=== PATIENT | male | born 1970 | race African-American/Black ===

== ENCOUNTER 2021-01-18 11:32 | Emergency (ER) | payer OTHER ==
[2021-01-18 12:29] LABS: #Basophils 0.1 thou/uL (0.0-0.2); #Eosinphils 0.1 thou/uL (0.0-0.7); #Lymphocytes 3.1 thou/uL (1.20-3.40); #Monocytes 0.6 thou/uL (0.11-0.59); #Neutrophils 4.1 thou/uL (1.40-6.50); %Basophils 1.5 % (0.0-1.0); %Eosinophils 0.7 % (0.0-10.0); %Lymphocytes 39.1 % (21.0-51.0); %Monocytes 7.4 % (0.0-10.0); %Neutrophils 51.2 % (42.0-75.0); Hemoglobin 16.8 g/dL (14.0-18.0); Mean Corpuscular HGB CONC 35.5 g/dL (32.0-36.0); Mean Corpuscular Hemoglobin 32.9 pg (27.0-31.0); Mean Corpuscular Volume 92.7 fL (78.0-98.0); Mean Platelet Volume 8.5 fL (7.4-10.4); Platelet Count 175 thou/uL (130-400); RBC Distribution Width 12.2 % (11.5-14.5); Red Blood Cell (RBC) Count 5.09 mill/uL (4.70-6.10); White Blood Cell (WBC) Count 7.9 thou/uL (4.8-10.8)
[2021-01-18] MEDS ORDERED: Iopamidol-370 76% 500 ML 1 ML ONE (12:30)
[2021-01-18 12:50] LABS: ALT (SGPT) 31 U/L (8-55); AST (SGOT) 26 U/L (5-34); Albumin 3.9 g/dL (3.5-5.0); Alkaline Phosphatase 81 U/L (40-110); Anion Gap 12 mmol/L (10-20); BUN (Urea Nitrogen) 11 mg/dL (8.4-25.7); Bilirubin, Total 0.9 mg/dL (0.2-1.2); Calc. Creatinine Clearance 0 mL/min (70-130); Calcium 9.6 mg/dL (7.8-10.44); Carbon Dioxide 27 mmol/L (22-29); Chloride 103 mmol/L (98-107); Globulin 2.9 g/dL (2.4-3.5); Glucose 289 mg/dL (70-105); Lipase Less than 4 U/L (8-78); Potassium 4.4 mmol/L (3.5-5.1); Protein, Total 6.8 g/dL (6.0-8.3); Sodium 138 mmol/L (136-145)
[2021-01-18 13:03] LABS: Bilirubin Negative (Negative); Blood, Urine Negative (Negative); Clarity Clear (Clear); Glucose, Urine (Dipstick) Greater than 1000 mg/dL (Negative); Ketone, Urine Trace mg/dL (Negative); Leukocyte Negative Leu/uL (Negative); Nitrite Negative (Negative); Protein, Urine (Dipstick) Negative (Neg-Trace); Specific Gravity, Urine 1.025 (1.002-1.036); Urobilinogen Normal mg/dL (Less than 2); pH, Urine 6.5 (5.0-9.0)
[2021-01-18] MEDS ORDERED: Ketorolac Tromethamine 30 MG/ML VIAL ONE (13:10)
[2021-01-18] MEDS ORDERED: Ondansetron PF 4 MG/2 ML Vial ONE (13:10)
--- NOTE | 2021-01-18 14:07 | CT ---
CT ABDOMEN AND PELVIS WITH CONTRAST: HISTORY: Right lower quadrant abdominal pain. COMPARISON: None. FINDINGS: Mild atelectasis of the lung bases. No pericardial effusion. Aortic contour is nonaneurysmal. The appendix is visualized and is normal. No hydroureteronephrosis or nephroureterolithiasis. There is a hypodensity inferior pole right kidne y measuring fluid attenuation, indicative of a cyst. Adrenal gland is unremarkable as well as the li sasha, spleen, and pancreas. No dilated loops of large or small bowel. Disk bulges throughout the lumbar spine causing moderate neural foraminal narrowing. No acute osseous abnormality. IMPRESSION: 1. Normal appendix. 2. No acute inflammatory process within the abdomen or pelvis. 3. No pelvic obstruction. POS: HOME
[2021-01-18] MEDS ORDERED: Morphine 4 MG/ML VIAL ONE (15:21)
== END 2021-01-18 15:33 | disposition home or self-care (01) ==
LOC: ERS 11:32
DX: R10.9 Unspecified abdominal pain (principal); E11.9 Type 2 diabetes mellitus without complications
CPT/HCPCS: 36415; 74177; 80053; 81003; 83690; 85025; 96374; 96375; J1885; J2270; J2405; Q9967

== ENCOUNTER 2024-11-03 09:30 | Outpatient (CLI) | payer MEDICARE ==
[2024-11-03 11:23] LABS: #Basophils 0.04 10x3/uL (0.0-0.2); %Basophils 0.6 % (0.0-1.0); %Eosinophils 1.3 % (0.0-10.0); %Lymphocytes 41.1 % (21.0-51.0); %Monocytes 8.1 % (0.0-10.0); %Neutrophils 48.8 % (42.0-75.0); Hematocrit 49.4 % (42.0-52.0); Hemoglobin 16.7 g/dL (14.0-18.0); Mean Corpuscular HGB CONC 33.8 g/dL (32.0-36.0); Mean Corpuscular Hemoglobin 30.8 pg (27.0-31.0); Platelet Count 226 10x3/uL (130-400); RBC Distribution Width 12.5 % (11.5-14.5); Red Blood Cell (RBC) Count 5.43 mill/uL (4.70-6.10)
[2024-11-03 13:05] LABS: Anion Gap 10 mmol/L (10-20); BUN (Urea Nitrogen) 10 mg/dL (8.4-25.7); Calc. Creatinine Clearance 0 mL/min (70-130); Calcium 9.1 mg/dL (7.8-10.44); Carbon Dioxide 28 mmol/L (22-29); Chloride 103 mmol/L (98-107); Estimated GFR 68; Glucose 202 mg/dL (70-105); Potassium 4.4 mmol/L (3.5-5.1); Sodium 137 mmol/L (136-145)
== END 2024-11-03 09:31 | disposition home or self-care (01) ==
LOC: LABBT 09:30
PROVIDERS: ATTEND Orthopaedic Surgery
DX: Z01.818 Encounter for other preprocedural examination (principal); R22.31 Localized swelling, mass and lump, right upper limb
CPT/HCPCS: 80048; 85025; 93005; 93010

== ENCOUNTER 2024-11-03 10:43 | Inpatient (IN) | payer MEDICARE ==
[2024-11-03] MEDS ORDERED: LORazepam 2 MG/ML SYR.(CARPUJECT) ONE (11:36)
[2024-11-03 12:11] LABS: Troponin I Less than 0.010 ng/mL (< 0.028)
[2024-11-03 12:14] LABS: ALT (SGPT) 34 U/L (8-55); AST (SGOT) 21 U/L (5-34); Albumin 3.2 g/dL (3.5-5.0); Alkaline Phosphatase 106 U/L (40-110); Anion Gap 11 mmol/L (10-20); BUN (Urea Nitrogen) 11 mg/dL (8.4-25.7); Bilirubin, Total 0.9 mg/dL (0.2-1.2); Calc. Creatinine Clearance 0 mL/min (70-130); Calcium 9.6 mg/dL (7.8-10.44); Carbon Dioxide 29 mmol/L (22-29); Chloride 104 mmol/L (98-107); Estimated GFR 74; Globulin 2.9 g/dL (2.4-3.5); Glucose 171 mg/dL (70-105); Magnesium 1.6 mg/dL (1.6-2.6); Potassium 4.2 mmol/L (3.5-5.1); Protein, Total 6.1 g/dL (6.0-8.3); Sodium 140 mmol/L (136-145)
[2024-11-03 12:30] LABS: Hematocrit 49.2 % (42.0-52.0); Mean Corpuscular HGB CONC 34.6 g/dL (32.0-36.0); Mean Corpuscular Hemoglobin 30.9 pg (27.0-31.0); Mean Corpuscular Volume 89.5 fL (78.0-98.0); Mean Platelet Volume 10.8 fL (7.4-10.4); Platelet Count 217 10x3/uL (130-400); RBC Distribution Width 12.2 % (11.5-14.5)
[2024-11-03 12:32] LABS: Band 1 % (5-11); Eosinophils 1 % (0-10); Hypersegmented Neutrophil SLIGHT (None Seen); Lymphocytes 35 % (21-51); Monocytes 5 % (0-10); Neutrophil 54 % (42-75); Platelet Adequacy Comment Platelets Normal; Reactive Lymphocytes 4 % (0-10)
[2024-11-03] MEDS ORDERED: Aspirin Chewable 81 MG TAB ONE (13:24)
[2024-11-03] MEDS ORDERED: Diltiazem HCl/D5W 125 ML ONE (13:25)
[2024-11-03 15:35] LABS: Troponin I Less than 0.010 ng/mL (< 0.028)
[2024-11-03] MEDS ORDERED: Ondansetron PF 4 MG/2 ML Vial IVP PRN (17:08)
[2024-11-03] MEDS ORDERED: Ondansetron ODT 4 MG TAB PO PRN (17:08)
[2024-11-03] MEDS ORDERED: Glucagon 1 MG/ML KIT IM PRN (17:08)
[2024-11-03] MEDS ORDERED: Dextrose 5% in Water 1,000 ML IV PRN (17:08)
[2024-11-03] MEDS ORDERED: Dextrose 50% Abboject 50 ML SYRINGE SLOW IVP PRN (17:08)
[2024-11-03] MEDS ORDERED: dilTIAZem 125 MG in Sodium Chloride 0.9% 100 ML IVPB SCH (17:15)
[2024-11-03 17:53] VITALS: BMI 30.5
[2024-11-03 18:38] LABS: Troponin I Less than 0.010 ng/mL (< 0.028)
[2024-11-03] MEDS: Famotidine 20 MG TAB PO SCH (20:51)
[2024-11-03] MEDS: Enoxaparin 100 MG (1 mL) SYRINGE SC SCH (20:51)
[2024-11-03] MEDS: Pregabalin 50 MG CAP PO SCH (20:51)
[2024-11-03] MEDS: Lithium Carbonate 150 MG CAP PO SCH (20:51)
[2024-11-03] MEDS: Insulin Regular, Human 100 UNIT/ML 10 ML VIAL IVP SCH (20:52)
[2024-11-03] MEDS: Insulin Lispro 100 UNIT/ML 10 ML VIAL SC PRN (23:25)
[2024-11-04 04:51] LABS: #Basophils Less than 0.03 10x3/uL (0.0-0.2); %Basophils 0.3 % (0.0-1.0); %Eosinophils 1.2 % (0.0-10.0); %Lymphocytes 31.8 % (21.0-51.0); %Monocytes 10.5 % (0.0-10.0); %Neutrophils 55.9 % (42.0-75.0); Hematocrit 43.5 % (42.0-52.0); Mean Corpuscular HGB CONC 34.5 g/dL (32.0-36.0); Mean Corpuscular Hemoglobin 30.5 pg (27.0-31.0); Mean Corpuscular Volume 88.6 fL (78.0-98.0); Mean Platelet Volume 11.5 fL (7.4-10.4); Platelet Count 211 10x3/uL (130-400); RBC Distribution Width 12.3 % (11.5-14.5); Red Blood Cell (RBC) Count 4.91 mill/uL (4.70-6.10)
[2024-11-04 05:04] LABS: Hemoglobin A1c 13.8 % (4.0-6.0)
[2024-11-04 05:12] LABS: Anion Gap 13 mmol/L (10-20); BUN (Urea Nitrogen) 13 mg/dL (8.4-25.7); Calc. Creatinine Clearance 109 mL/min (70-130); Carbon Dioxide 23 mmol/L (22-29); Chloride 108 mmol/L (98-107); Estimated GFR 80; Glucose 75 mg/dL (70-105); Potassium 3.5 mmol/L (3.5-5.1); Sodium 140 mmol/L (136-145)
[2024-11-04] MEDS: Gabapentin 300 MG CAP PO SCH (09:42)
[2024-11-04] MEDS: Acetaminophen 500 MG TAB PO PRN (09:43)
[2024-11-04] MEDS: Insulin Glargine 30 UNITS/0.3 ML VIAL SC SCH (09:44)
[2024-11-04] MEDS: Insulin Lispro 100 UNIT/ML 10 ML VIAL SC PRN (12:34)
[2024-11-04] MEDS: FLU (Fluarix Triv) TS24-25(6MOS UP)/PF 45 MCG/0.5 ML Syringe IM ONE (13:20)
[2024-11-04] MEDS ORDERED: Electrolyte Replacement Protocol 1 EACH FS SCH (15:00)
[2024-11-04] MEDS: Magnesium 2 GM/50 ML(in water) 2 GM in Premix 1 BAG IVPB SCH (15:55)
[2024-11-04] MEDS: Carvedilol 3.125 MG TAB PO SCH (17:17)
[2024-11-04] MEDS ORDERED: Sacubitril 24MG/Valsartan 26 MG TAB PO SCH (21:00)
[2024-11-04] MEDS: Atorvastatin Calcium 40 MG TAB PO SCH (21:57)
[2024-11-04] MEDS: Lorazepam 0.5 MG TAB PO PRN (21:58)
[2024-11-05 04:47] LABS: #Basophils 0.03 10x3/uL (0.0-0.2); %Basophils 0.5 % (0.0-1.0); %Eosinophils 1.9 % (0.0-10.0); %Lymphocytes 59.5 % (21.0-51.0); %Monocytes 7.4 % (0.0-10.0); %Neutrophils 30.5 % (42.0-75.0); Hematocrit 42.8 % (42.0-52.0); Mean Corpuscular Volume 88.4 fL (78.0-98.0); Mean Platelet Volume 11.8 fL (7.4-10.4); Platelet Count 191 10x3/uL (130-400); RBC Distribution Width 12.2 % (11.5-14.5); Red Blood Cell (RBC) Count 4.84 mill/uL (4.70-6.10)
[2024-11-05 05:55] LABS: ALT (SGPT) 22 U/L (8-55); AST (SGOT) 21 U/L (5-34); Albumin 2.9 g/dL (3.5-5.0); Alkaline Phosphatase 120 U/L (40-110); Anion Gap 14 mmol/L (10-20); BUN (Urea Nitrogen) 12 mg/dL (8.4-25.7); Bilirubin, Total 0.4 mg/dL (0.2-1.2); Calc. Creatinine Clearance 98 mL/min (70-130); Calcium 8.6 mg/dL (7.8-10.44); Carbon Dioxide 22 mmol/L (22-29); Chloride 106 mmol/L (98-107); Estimated GFR 70; Globulin 2.8 g/dL (2.4-3.5); Glucose 383 mg/dL (70-105); Potassium 4.3 mmol/L (3.5-5.1); Protein, Total 5.7 g/dL (6.0-8.3); Sodium 138 mmol/L (136-145)
[2024-11-05] MEDS ORDERED: Regadenoson 0.4 MG/5 ML SYRINGE ONE (10:25)
[2024-11-05] MEDS: Magnesium 2 GM/50 ML(in water) 2 GM in Premix 1 BAG IVPB SCH (11:43)
[2024-11-05] MEDS: Amiodarone 450 MG in Dextrose 5% in Water 250 ML IVPB SCH (14:54)
[2024-11-05] MEDS: Metoprolol Tartrate 5 MG (5 mL) VIAL IVP SCH (16:30)
[2024-11-05] MEDS: Sodium Chloride 0.45% 1,000 ML IV SCH (16:31)
[2024-11-05 17:08] LABS: Anion Gap 11 mmol/L (10-20); BUN (Urea Nitrogen) 11 mg/dL (8.4-25.7); Calc. Creatinine Clearance 91 mL/min (70-130); Carbon Dioxide 25 mmol/L (22-29); Chloride 109 mmol/L (98-107); Estimated GFR 64; Glucose 338 mg/dL (70-105); Sodium 141 mmol/L (136-145)
[2024-11-05] MEDS: Digoxin 0.5 MG/2 ML AMP SLOW IVP SCH (17:48)
[2024-11-05] MEDS: Insulin Glargine 30 UNITS/0.3 ML VIAL SC SCH (21:58)
[2024-11-05] MEDS: Metoprolol Tartrate 50 MG TAB PO SCH (21:58)
[2024-11-06 04:03] LABS: #Basophils Less than 0.03 10x3/uL (0.0-0.2); %Basophils 0.4 % (0.0-1.0); %Eosinophils 2.2 % (0.0-10.0); %Lymphocytes 57.6 % (21.0-51.0); %Monocytes 6.5 % (0.0-10.0); %Neutrophils 33.1 % (42.0-75.0); Hematocrit 41.4 % (42.0-52.0); Hemoglobin 14.2 g/dL (14.0-18.0); Mean Corpuscular HGB CONC 34.3 g/dL (32.0-36.0); Mean Corpuscular Hemoglobin 30.6 pg (27.0-31.0); Mean Corpuscular Volume 89.2 fL (78.0-98.0); Mean Platelet Volume 11.8 fL (7.4-10.4); Platelet Count 185 10x3/uL (130-400); RBC Distribution Width 12.4 % (11.5-14.5); Red Blood Cell (RBC) Count 4.64 mill/uL (4.70-6.10)
[2024-11-06 04:25] LABS: Anion Gap 11 mmol/L (10-20); BUN (Urea Nitrogen) 12 mg/dL (8.4-25.7); Calc. Creatinine Clearance 92 mL/min (70-130); Calcium 8.4 mg/dL (7.8-10.44); Carbon Dioxide 23 mmol/L (22-29); Chloride 109 mmol/L (98-107); Estimated GFR 64; Glucose 274 mg/dL (70-105); Magnesium 1.8 mg/dL (1.6-2.6); Potassium 3.9 mmol/L (3.5-5.1); Sodium 139 mmol/L (136-145)
[2024-11-06] MEDS ORDERED: Electrolyte Replacement Protocol FS PRN (08:45)
[2024-11-06] MEDS: Magnesium 2 GM/50 ML(in water) 2 GM in Premix 1 BAG IVPB SCH (09:42)
[2024-11-06] MEDS: Digoxin 0.5 MG/2 ML AMP SLOW IVP SCH ×3 (09:43→18:18)
[2024-11-06] MEDS: Insulin Lispro 100 UNIT/ML 10 ML VIAL SC PRN (15:45)
[2024-11-06] MEDS: Sacubitril 24MG/Valsartan 26 MG TAB PO SCH (21:47)
[2024-11-07 04:35] LABS: #Basophils Less than 0.03 10x3/uL (0.0-0.2); %Basophils 0.4 % (0.0-1.0); %Eosinophils 2.4 % (0.0-10.0); %Lymphocytes 48.5 % (21.0-51.0); %Monocytes 7.5 % (0.0-10.0); Hematocrit 43.3 % (42.0-52.0); Hemoglobin 14.8 g/dL (14.0-18.0); Mean Corpuscular HGB CONC 34.2 g/dL (32.0-36.0); Mean Corpuscular Hemoglobin 30.8 pg (27.0-31.0); Mean Corpuscular Volume 90.2 fL (78.0-98.0); Mean Platelet Volume 11.3 fL (7.4-10.4); Platelet Count 190 10x3/uL (130-400); RBC Distribution Width 12.3 % (11.5-14.5)
[2024-11-07 04:59] LABS: Anion Gap 11 mmol/L (10-20); BUN (Urea Nitrogen) 15 mg/dL (8.4-25.7); Calc. Creatinine Clearance 114 mL/min (70-130); Carbon Dioxide 22 mmol/L (22-29); Chloride 108 mmol/L (98-107); Estimated GFR 84; Glucose 245 mg/dL (70-105); Magnesium 1.6 mg/dL (1.6-2.6); Potassium 4.1 mmol/L (3.5-5.1); Sodium 137 mmol/L (136-145)
[2024-11-07] MEDS: Apixaban 5 MG TAB PO SCH (09:17)
[2024-11-07] MEDS: Dapagliflozin Propanediol 10 MG TAB PO SCH (09:17)
[2024-11-07] MEDS: Metoprolol Tartrate 25 MG TAB PO SCH (09:18)
[2024-11-07] MEDS: Magnesium 2 GM/50 ML(in water) 2 GM in Premix 1 BAG IVPB SCH (09:18)
[2024-11-07] MEDS: Amiodarone 200 MG TAB PO SCH ×2 (09:50→21:06)
[2024-11-07] MEDS ORDERED: Amiodarone 200 MG TAB PO SCH (15:00)
[2024-11-08 04:27] LABS: #Basophils 0.03 10x3/uL (0.0-0.2); %Basophils 0.5 % (0.0-1.0); %Eosinophils 2.1 % (0.0-10.0); %Lymphocytes 46.7 % (21.0-51.0); %Monocytes 10.1 % (0.0-10.0); %Neutrophils 40.4 % (42.0-75.0); Hemoglobin 15.8 g/dL (14.0-18.0); Mean Corpuscular HGB CONC 34.3 g/dL (32.0-36.0); Mean Corpuscular Hemoglobin 30.4 pg (27.0-31.0); Mean Corpuscular Volume 88.5 fL (78.0-98.0); Mean Platelet Volume 11.2 fL (7.4-10.4); Platelet Count 192 10x3/uL (130-400); RBC Distribution Width 12.2 % (11.5-14.5)
[2024-11-08 04:43] LABS: Anion Gap 14 mmol/L (10-20); BUN (Urea Nitrogen) 15 mg/dL (8.4-25.7); Calc. Creatinine Clearance 104 mL/min (70-130); Calcium 9.1 mg/dL (7.8-10.44); Carbon Dioxide 23 mmol/L (22-29); Chloride 108 mmol/L (98-107); Estimated GFR 75; Glucose 218 mg/dL (70-105); Magnesium 1.8 mg/dL (1.6-2.6); Sodium 141 mmol/L (136-145)
[2024-11-08] MEDS: Magnesium 2 GM/50 ML(in water) 2 GM in Premix 1 BAG IVPB SCH (08:51)
[2024-11-09 04:54] LABS: Magnesium 1.8 mg/dL (1.6-2.6)
[2024-11-09 06:09] LABS: #Basophils 0.04 10x3/uL (0.0-0.2); %Basophils 0.6 % (0.0-1.0); %Eosinophils 1.8 % (0.0-10.0); %Lymphocytes 49.9 % (21.0-51.0); %Monocytes 8.1 % (0.0-10.0); %Neutrophils 39.5 % (42.0-75.0); Hematocrit 51.3 % (42.0-52.0); Hemoglobin 17.8 g/dL (14.0-18.0); Mean Corpuscular HGB CONC 34.7 g/dL (32.0-36.0); Mean Corpuscular Hemoglobin 30.6 pg (27.0-31.0); Mean Corpuscular Volume 88.3 fL (78.0-98.0); Mean Platelet Volume 11.7 fL (7.4-10.4); Platelet Count 204 10x3/uL (130-400); RBC Distribution Width 12.4 % (11.5-14.5); Red Blood Cell (RBC) Count 5.81 mill/uL (4.70-6.10)
[2024-11-09 06:24] LABS: Anion Gap 17 mmol/L (10-20); BUN (Urea Nitrogen) 17 mg/dL (8.4-25.7); Calc. Creatinine Clearance 107 mL/min (70-130); Calcium 9.5 mg/dL (7.8-10.44); Carbon Dioxide 20 mmol/L (22-29); Chloride 107 mmol/L (98-107); Estimated GFR 78; Glucose 234 mg/dL (70-105); Potassium 3.8 mmol/L (3.5-5.1); Sodium 140 mmol/L (136-145)
[2024-11-09] MEDS: Magnesium 2 GM/50 ML(in water) 2 GM in Premix 1 BAG IVPB SCH (09:01)
[2024-11-09] MEDS: Polyethylene Glycol 3350 17 GM Packet PO PRN (11:49)
[2024-11-11] MEDS ORDERED: Heparin 10,000 UNITS/ 10 ML VIAL ONE ×2 (08:30→11:04)
[2024-11-11] MEDS ORDERED: Protamine Sulfate 50 MG/5 ML VIAL ONE ×2 (08:30→12:36)
[2024-11-11] MEDS ORDERED: Heparin 25,000 units/D5W 500 ML ONE (08:31)
[2024-11-11] MEDS ORDERED: Isoproterenol 0.2 MG/1 ML AMP ONE (08:31)
[2024-11-11] MEDS ORDERED: Dexmedetomidine 200 MCG/2 ML VIAL ONE (10:00)
[2024-11-11] MEDS ORDERED: fentaNYL 50 mcg/mL 1 mL Vial ONE ×3 (10:25→15:55)
[2024-11-11] MEDS ORDERED: Midazolam HCl 2 mg/2 ml Vial ONE (10:25)
[2024-11-11] MEDS ORDERED: Glycopyrrolate 0.2 MG/ML 5 ML SYRINGE ONE (10:36)
[2024-11-11] MEDS ORDERED: Rocuronium Bromide 10 MG/ML (10ML VIAL) ONE (10:36)
[2024-11-11] MEDS ORDERED: Ondansetron PF 4 MG/2 ML Vial ONE (10:36)
[2024-11-11] MEDS ORDERED: PHENYLEPHRINE-NS 100 MCG/ML 10 ML SYRINGE ONE (10:41)
[2024-11-11] MEDS ORDERED: Vasopressin 20 UNITS/ML VIAL ONE (10:48)
[2024-11-11] MEDS ORDERED: Albumin 5% 500 ML ONE (12:00)
[2024-11-11] MEDS ORDERED: SUGAMMADEX SODIUM 200 MG/2 ML VIAL ONE (12:41)
[2024-11-11 12:47] VITALS: BMI 30.5
[2024-11-11] MEDS ORDERED: Lidocaine 1% w/Epinephrine 1:100K 20 ML VIAL ONE (12:59)
[2024-11-11] MEDS ORDERED: Furosemide 20 MG (2 mL) VIAL ONE (14:07)
[2024-11-12 03:56] LABS: #Basophils 0.04 10x3/uL (0.0-0.2); %Basophils 0.5 % (0.0-1.0); %Eosinophils 0.7 % (0.0-10.0); %Lymphocytes 35.1 % (21.0-51.0); %Monocytes 11.7 % (0.0-10.0); %Neutrophils 51.8 % (42.0-75.0); Hematocrit 43.7 % (42.0-52.0); Hemoglobin 14.9 g/dL (14.0-18.0); Mean Corpuscular HGB CONC 34.1 g/dL (32.0-36.0); Mean Corpuscular Volume 90.9 fL (78.0-98.0); Mean Platelet Volume 11.3 fL (7.4-10.4); Platelet Count 161 10x3/uL (130-400); Red Blood Cell (RBC) Count 4.81 mill/uL (4.70-6.10)
[2024-11-12 04:11] LABS: Anion Gap 12 mmol/L (10-20); BUN (Urea Nitrogen) 24 mg/dL (8.4-25.7); Calc. Creatinine Clearance 82 mL/min (70-130); Calcium 8.5 mg/dL (7.8-10.44); Carbon Dioxide 24 mmol/L (22-29); Chloride 107 mmol/L (98-107); Estimated GFR 57; Glucose 194 mg/dL (70-105); Potassium 4.1 mmol/L (3.5-5.1); Sodium 139 mmol/L (136-145)
[2024-11-12 14:13] VITALS: BP 116/60; TEMP 98.3
== END 2024-11-12 16:10 | disposition home or self-care (01) | DRG 274 ==
LOC: ERS 10:43 → ERHOLD 13:55 → 2NO 17:34 → OBSVTOIN 11-04 14:22
PROVIDERS: ADMIT Family Medicine; ATTEND Student in an Organized Health Care Education/Training Program
PROC: 02583ZZ Destruction of Conduction Mechanism, Percutaneous Approach (ICD-10-PCS; principal; 2024-11-11)
PROC: 4A023FZ Measurement of Cardiac Rhythm, Percutaneous Approach (ICD-10-PCS; 2024-11-11)
PROC: 4A0234Z Measurement of Cardiac Electrical Activity, Percutaneous Approach (ICD-10-PCS; 2024-11-11)
DX: I48.0 Paroxysmal atrial fibrillation (principal); I50.22 Chronic systolic (congestive) heart failure; I42.9 Cardiomyopathy, unspecified; E11.9 Type 2 diabetes mellitus without complications; F43.10 Post-traumatic stress disorder, unspecified; E78.00 Pure hypercholesterolemia, unspecified; F31.9 Bipolar disorder, unspecified; I49.5 Sick sinus syndrome; I11.0 Hypertensive heart disease with heart failure; Z88.5 Allergy status to narcotic agent; Z91.018 Allergy to other foods; Z88.8 Allergy status to other drugs, medicaments and biological substances; Z79.4 Long term (current) use of insulin; Z79.899 Other long term (current) drug therapy
CPT/HCPCS: 36415; 36416; 71045; 78452; 80048; 80053; 83036; 83735; 83880; 84443; 84484; 85025; 85347; 93005; 93010; 93017; 93306; 93622; 93623; 93656; 93657; 96372; 96374; 96375; A9502; C1730; C1732; C1733; C1759; C1760; C1766; C1769; C1894; G0378; J0282; J1160; J1644; J1650; J1815; J1940; J2060; J2250; J2405; J2720; J2785; J3010; J3475; J7070; P9045